=== PATIENT | female | born 1980 | race Two or more races ===

== ENCOUNTER 2023-03-24 20:52 | Emergency (ER) | payer MEDICAID, OTHER ==
[~2023-03-24] VITALS: Ht 157.5 cm; Wt 95.0 kg
[2023-03-24] MEDS ORDERED: MORPHINE SULFATE 4 MG/ML SYR/VIAL IM ONE ×2 (22:15→23:30)
[2023-03-24 23:04] LABS: Basophils # (auto) 0.1 10 ^3/uL (0-0.2); Basophils % (auto) 0.8 % (0.0-2.0); Eosinophils # (auto) 0.1 10 ^3/uL (0-0.8); Eosinophils % (auto) 0.9 % (0.0-7.0); Hematocrit 35.3 % (36.0-46.0); Hemoglobin 11.2 g/dL (12.2-16.2); Lymphocytes # (auto) 2.6 10 ^3/uL (0.4-5.4); Lymphocytes % (auto) 22.1 % (10.0-50.0); Mean Corpuscular Hemoglobin 23.4 pg (28.0-32.0); Mean Corpuscular Hgb Conc. 31.7 g/dL (32.0-36.0); Mean Corpuscular Volume 73.8 fL (80.0-100.0); Monocytes # (auto) 0.6 10 ^3/uL (0-1.3); Monocytes % (auto) 4.9 % (0.0-12.0); Neutrophils # (auto) 8.4 10 ^3/uL (1.6-8.6); Neutrophils % (auto) 71.3 % (37.0-80.0); Nucleated Red Blood Cells % 0.3 %; Red Blood Cells 4.78 10^6/uL (4.0-5.20); Red Cell Distribution Width 16.7 % (11.8-14.3); White Blood Cell 11.7 10^3/uL (4.4-10.8)
[2023-03-24 23:20] LABS: Urine Bacteria NONE SEEN /hpf (None Seen); Urine Blood 3+ /uL (Negative); Urine Mucus FEW (None Seen); Urine Specific Gravity 1.034 (1.001-1.035); Urine WBC 11 /hpf (0 - 5)
[2023-03-24 23:32] LABS: Albumin 2.9 g/dL (3.4-5.0); BUN/Creatinine Ratio 18.7 (10.0-20.0); Potassium 3.9 mmol/L (3.5-5.1)
[2023-03-24 23:35] LABS: Bilirubin, Total 0.2 mg/dL (0.2-1.0); Total Protein 7.6 g/dL (6.4-8.2)
[2023-03-25] MEDS ORDERED: NAP500T PO (01:38)
[2023-03-25 03:16] VITALS: BP 122/62
== END 2023-03-25 03:18 | disposition home or self-care (01) ==
LOC: ER 20:52
DX: N93.9 Abnormal uterine and vaginal bleeding, unspecified (principal); R10.2 Pelvic and perineal pain
CPT/HCPCS: 36415; 76830; 76856; 80053; 81001; 83690; 84702; 85025; 96372; 99285; J2270